=== PATIENT | male | born 1970 | race Caucasian/White ===

== ENCOUNTER 2017-07-02 09:42 | Emergency (ER) | payer BC ==
[~2017-07-02] VITALS: Ht 175.3 cm; Wt 108.2 kg
[2017-07-02 09:47] VITALS: TEMP 36.6; Ht 175.3 cm; Wt 108.2 kg
[2017-07-02] MEDS ORDERED: PANTOprazole INJ 40 MG in SYRINGE 0 ML IV ONE (10:00)
--- NOTE | 2017-07-02 10:07 | EMERGENCY ROOM VISIT NOTE ---
History Report prepared by Triciaibxochilt: Aleshia Boucher Under the Supervision of: Dr. Carlos Quintero D.O. First contact with patient: 09:53 Chief Complaint: ABDOMINAL PAIN Stated Complaint: PAIN IN RT SIDE, RADIATES TO SHOULDER History of Present Illness The patient is a 46 year old male who presents to the Emergency Room with complaints of intermittent abdominal pain for the past 1 year. He rates his pain as a 5/10 in severity. He states the pain radiates from the right side of his abdomen up his chest to his right shoulder. Eating spicy foods worsens his discomfort. He has previously had an US at [facility], and states they told him he had "fatty liver" but his gallbladder looked "OK". He has experienced no melena or hematochezia. He denies any nausea, vomiting or diarrhea. He has experienced no flank pain or difficulty breathing. Source of History: patient Onset: 1 year [employer] Position: abdomen Symptom Intensity: 5/10 Timing: intermittent Modifying Factors (Worsening): eating (spicy foods) Associated Symptoms: No SOB, No nausea, No vomiting, No melena, No hematochezia, No diarrhea Review of Systems See HPI for pertinent positives & negatives. A total of 10 systems reviewed and were otherwise negative. Past Medical & Surgical Medical Problems: (1) Gout (2) Sciatica Social History Smoking Status: Never Smoker Alcohol Use: occasionally Drug Use: none Marital Status: Housing Status: lives with family Occupation Status: employed Current/Historical Medications Scheduled Acetaminophen (Tylenol), 1,000 MG PO UD Allopurinol (Zyloprim), 400 MG PO QAM Ibuprofen (Advil), 400 MG PO UD Pantoprazole (Protonix), 40 MG PO DAILY Ranitidine Hcl (Zantac), 150 MG PO BID Allergies Coded Allergies: No Known Allergies (Unverified , 07/02/17) Physical Exam Vital Signs Date Time Temp Pulse Resp B/P (MAP) Pulse Ox O2 Delivery O2 Flow Rate FiO2 07/02/17 12:31 77 16 114/69 96 Room Air 07/02/17 11:36 80 18 123/70 95 Room Air 07/02/17 10:47 82 07/02/17 09:47 36.6 82 18 141/86 97 Room Air Physical Exam GENERAL: Patient is awake, alert in no acute distress, patient is resting comfortably and showing no signs of anxiety EYES: The conjunctivae are clear. The pupils are round and reactive. EARS, NOSE, MOUTH AND THROAT: The nose is without any evidence of any deformity. Mucous membranes are moist tongue is midline NECK: The neck is nontender and supple. RESPIRATORY: Lung sounds are diminished with rales at the right base, no tachypnea or conversational dyspnea appreciated CARDIOVASCULAR: Regular rate and rhythm noted there no murmurs rubs or gallops normal S1 normal S2 GASTROINTESTINAL: The abdomen is soft. Bowel sounds are present in all quadrants. Abdomen is nontender BACK: No midline tenderness or or step-off noted range of motion in flexion extension as well as rotation no signs of muscle spasm noted MUSCULOSKELETAL/EXTREMITIES: There is no evidence of gross deformity full range of motion is noted in the hips and shoulders SKIN: There is no obvious evidence of any rash. There are no petechiae, pallor or cyanosis noted. NEUROLOGIC: Patient is awake alert and oriented x3 Medical Decision & Procedures ER Provider Diagnostic Interpretation: Radiology results as stated below per my review and radiologist interpretation: CHEST ONE VIEW PORTABLE CLINICAL HISTORY: EVALUATE ALTERED MENTAL STATUS/WEAKNESS COMPARISON STUDY: No previous studies for comparison. FINDINGS: The bones soft tissues and hemidiaphragms are normal. The cardiomediastinal silhouette is normal. The lungs are clear. The pulmonary vasculature is normal. IMPRESSION: Negative chest. The above report was generated using voice recognition software. It may contain grammatical, syntax or spelling errors. Electronically signed by: Mathew Balderrama M.D. 07/02/2017 10:29 AM ABD/PELVIS IV CONTRAST ONLY CT DOSE: HISTORY: Pain right sided pain into the ABD TECHNIQUE: Multiaxial CT images of the abdomen and pelvis were performed following the use of intravenous contrast. A dose lowering technique was utilized adhering to the principles of ALARA. COMPARISON STUDY: None. FINDINGS: Mild bibasilar atelectasis. Fatty infiltration of liver. Gallbladder is negative for distention. In bowel pattern is nonobstructive. The appendix is normal. The cecum and proximal a sending colon suggests the possibility of a mild wall edema. There is suggestion of a trace may pericolonic infiltrative change with slight thickening of the right lateral conal fascia. Possibility of a mild nonspecific colitis is considered. Bowel pattern otherwise is nonobstructive and unremarkable. Several scattered colonic diverticuli with no evidence of diverticulitis. Bladder is midline. Inguinal regions are unremarkable. IMPRESSION: 1. Normal appendix. 2. Findings of the cecum and proximal a sending colon suggesting a mild degree of nonspecific colitis. 3. No evidence for abscess collection or obstruction. 4. Fatty infiltration of liver. The above report was generated using voice recognition software. It may contain grammatical, syntax or spelling errors. Electronically signed by: Mathew Balderrama M.D. 07/02/2017 1:[address] OF THE THORACIC SPINE WITH CONTRAST CLINICAL HISTORY: Right-sided pain radiating into abdomen. COMPARISON STUDY: No previous studies for comparison. TECHNIQUE: Axial images of the thoracic spine were obtained following intravenous injection of 90 cc Optiray 320 IV. Sagittal and coronal reconstructions were viewed. FINDINGS: The thyroid gland is moderately enlarged. The abdomen and pelvis will be reported separately. Lamina of the thoracic spine is anatomic. Vertebral body heights are maintained. There is no fracture or suspicious lesion within the thoracic spine by CT. Multiple small lymph nodes are noted. Central canal and neural foramen are suboptimally assessed by CT but appear patent. Paravertebral soft tissues are unremarkable. Fatty infiltration of the liver is noted. There is borderline cardiomegaly. IMPRESSION: 1. No acute thoracic spine fracture or subluxation. 2. Patent central canal and neural foramen by CT. 3. Enlarged thyroid gland. Electronically signed by: Kenneth Green M.D. 07/02/2017 1:03 PM Laboratory Results 07/02/17 09:55 Red Blood Count 4.62, Mean Corpuscular Volume 87.7, Mean Corpuscular Hemoglobin 31.8, Mean Corpuscular Hemoglobin Concent 36.3, Mean Platelet Volume 10.0, Neutrophils (%) (Auto) 62.6, Lymphocytes (%) (Auto) 23.0, Monocytes (%) (Auto) 9.0, Eosinophils (%) (Auto) 4.4, Basophils (%) (Auto) 0.6, Neutrophils # (Auto) 3.41, Lymphocytes # (Auto) 1.25, Monocytes # (Auto) 0.49, Eosinophils # (Auto) 0.24, Basophils # (Auto) 0.03 07/02/17 09:55 Test 07/02/17 09:55 07/02/17 10:30 White Blood Count 5.44 K/uL (4.8-10.8) Red Blood Count 4.62 M/uL (4.7-6.1) Hemoglobin 14.7 g/dL (14.0-18.0) Hematocrit 40.5 % (42-52) Mean Corpuscular Volume 87.7 fL (80-100) Mean Corpuscular Hemoglobin 31.8 pg (25-34) Mean Corpuscular Hemoglobin Concent 36.3 g/dl (32-36) Platelet Count 151 K/uL (130-400) Mean Platelet Volume 10.0 fL (7.4-10.4) Neutrophils (%) (Auto) 62.6 % Lymphocytes (%) (Auto) 23.0 % Monocytes (%) (Auto) 9.0 % Eosinophils (%) (Auto) 4.4 % Basophils (%) (Auto) 0.6 % Neutrophils # (Auto) 3.41 K/uL (1.4-6.5) Lymphocytes # (Auto) 1.25 K/uL (1.2-3.4) Monocytes # (Auto) 0.49 K/uL (0.11-0.59) Eosinophils # (Auto) 0.24 K/uL (0-0.5) Basophils # (Auto) 0.03 K/uL (0-0.2) RDW Standard Deviation 42.4 fL (36.4-46.3) RDW Coefficient of Variation 13.2 % (11.5-14.5) Immature Granulocyte % (Auto) 0.4 % Immature Granulocyte # (Auto) 0.02 K/uL (0.00-0.02) Prothrombin Time 10.2 SECONDS (9.0-12.0) Prothromb Time International Ratio 1.0 (0.9-1.1) Activated Partial Thromboplast Time 28.9 SECONDS (21.0-31.0) Partial Thromboplastin Ratio 1.1 D-Dimer 500 ug/L FEU (0-500) Anion Gap 5.0 mmol/L (3-11) Est Creatinine Clear Calc Drug Dose 109.5 ml/min Estimated GFR () 102.7 Estimated GFR (Non- 88.6 BUN/Creatinine Ratio 12.5 (10-20) Calcium Level 8.7 mg/dl (8.5-10.1) Magnesium Level 2.3 mg/dl (1.8-2.4) Total Bilirubin 1.6 mg/dl (0.2-1) Direct Bilirubin 0.3 mg/dl (0-0.2) Aspartate Amino Transf (AST/SGOT) 22 U/L (15-37) Alanine Aminotransferase (ALT/SGPT) 35 U/L (12-78) Alkaline Phosphatase 80 U/L (45-117) Troponin I < 0.015 ng/ml (0-0.045) Total Protein 7.2 gm/dl (6.4-8.2) Albumin 3.9 gm/dl (3.4-5.0) Lipase 102 U/L (73-393) Thyroid Stimulating Hormone (TSH) 5.930 uIu/ml (0.300-4.500) Free Thyroxine 0.64 ng/dl (0.80-1.60) Urine Color ORANGE Urine Appearance CLEAR (CLEAR) Urine pH 5.0 (4.5-7.5) Urine Specific [place] 1.032 (1.000-1.030) Urine Protein NEG (NEG) Urine Glucose (UA) NEG (NEG) Urine Ketones NEG (NEG) Urine Occult Blood NEG (NEG) Urine Nitrite NEG (NEG) Urine Bilirubin NEG (NEG) Urine Urobilinogen NEG (NEG) Urine Leukocyte Esterase NEG (NEG) Laboratory results per my review. Medications Administered Medications (Trade) Dose Ordered Sig/[place]aven Route Start Time Stop Time Status Last Admin Dose Admin Pantoprazole Sodium 40 mg/ Syringe 10 ml @ 5 mls/min NOW ONCE IV 07/02/17 10:00 07/02/17 10:02 DC 07/02/17 10:36 5 MLS/MIN Ranitidine HCl (zANTac TAB) 150 mg NOW ONCE PO 07/02/17 13:45 07/02/17 13:46 DC 07/02/17 13:55 150 MG ECG Per My Interpretation Indication: abdominal pain Rate (beats per minute): 80 Rhythm: normal sinus Findings: no ectopy, other (No acute ST segments) Comparison ECG Date: no prior available ED Course 0956: The patient was evaluated in room A4. A complete history and physical examination were performed. 1000: Pantoprazole Sodium 40 mg/Syringe 10 ml @ 5 mls/min IV. 1230: I reevaluated the patient. I discussed his results so far and my recommendation we do a CT scan. He verbalized complete understanding and agreement. 1337: I discussed the patients case with [facility]. He will follow up with the patient as an outpatient. 1340: I reevaluated the patient. He is feeling well and resting. I discussed his results and discharge instructions and he verbalized complete understanding and agreement. 1345: Zantac 150 mg PO. Medical Decision Prior records/ancillary studies reviewed. Triage Nursing notes reviewed. The patient's history was concerning for abdominal pain. Differential diagnosis: Etiologies such as appendicitis, diverticulitis, PUD, biliary pathology, UTI, pancreatitis, obstruction, mesenteric ischemia, aortic pathology, infections, inflammatory bowel disease, renal colic, as well as others were entertained. The patient is a 46-year-old male who presented to the emergency department with right-sided abdominal and right-sided chest pain with radiation to the shoulder. The patient states that he has had ongoing symptoms for quite some time but they became much worse recently. He was seen recently at [facility] and had an ultrasound which did not reveal any acute abnormality. The patient's pain is somewhat worsened with eating as well. I discussed the patient's laboratory and radiographic studies with him including the abnormalities noted and is a sending colon as well as the abnormalities noted in his thyroid function studies. I discussed his case with the [facility] of his choice. They have agreed to evaluate the patient as an outpatient for further management and disposition. The patient was encouraged to avoid any fatty spicy or fried foods. He was also encouraged to continue all medications as prescribed and return to the emergency department immediately if symptoms change worsen or the need arises. He was started on Protonix and Zantac. Medication Reconcilliation Current Medication List: was personally reviewed by me Blood Pressure Screening Patient's blood pressure: Normal blood pressure Blood pressure disposition: Did not require urgent referral Consults Time Called: 1335 Consulting Physician: [facility] Returned Call: 1334 I discussed the patients case with [facility]. He will follow up with the patient as an outpatient. Impression Primary Impression: Right-sided chest pain Additional Impressions: Right sided abdominal pain Colitis Scribe Attestation The scribe's documentation has been prepared under my direction and personally reviewed by me in its entirety. I confirm that the note above accurately reflects all work, treatment, procedures, and medical decision making performed by me. Departure Information Dispostion Home / Self-Care Prescriptions Pantoprazole (PROTONIX) 40 Mg Tab 40 MG PO DAILY, #30 TAB Prov: Carlos Quintero, DO 07/02/17 Ranitidine Hcl (ZANTAC) 150 Mg Tab 150 MG PO BID, #60 TAB Prov: Carlos Quintero, DO 07/02/17 Referrals No Doctor, Assigned (PCP) Patient Instructions Abdominal Pain, My [facility] [address] Additional Instructions Call the [facility] specialists to schedule a follow-up appointment. Drink plenty of clear liquids. Continue using Tylenol as directed for mild pain. Continue all other medications as prescribed. Avoid any spicy fatty or fried foods. Follow-up with your family doctor for reevaluation of your thyroid function studies. You may need to be started on a thyroid medication or possibly a referral to an net coordinator. Return to the emergency department immediately if symptoms change worsen or the need arises. Problem Qualifiers
[2017-07-02 10:08] LABS: BASO % 0.6 %; BASO ABS # 0.03 K/uL (0-0.2); EOS % 4.4 %; EOS ABS # 0.24 K/uL (0-0.5); HEMATOCRIT 40.5 % (42-52); HEMOGLOBIN 14.7 g/dL (14.0-18.0); IG# 0.02 K/uL (0.00-0.02); LYMPH ABS # 1.25 K/uL (1.2-3.4); MEAN CELL VOLUME 87.7 fL (80-100); MEAN CORPUSCULAR HEMOGLOBIN 31.8 pg (25-34); MEAN CORPUSCULAR HGB CONC 36.3 g/dl (32-36); MONO ABS # 0.49 K/uL (0.11-0.59); NEUT % 62.6 %; NEUT ABS # 3.41 K/uL (1.4-6.5); PLATELET COUNT 151 K/uL (130-400); RED CELL DISTRIBUTION WIDTH CV 13.2 % (11.5-14.5); RED CELL DISTRIBUTION WIDTH SD 42.4 fL (36.4-46.3); WHITE BLOOD COUNT 5.44 K/uL (4.8-10.8)
[2017-07-02 10:21] LABS: PTT PATIENT 28.9 SECONDS (21.0-31.0)
[2017-07-02 10:29] LABS: ALBUMIN 3.9 gm/dl (3.4-5.0); ALT/SGPT 35 U/L (12-78); AST/SGOT 22 U/L (15-37); BLOOD UREA NITROGEN 12 mg/dl (7-18); CALCIUM 8.7 mg/dl (8.5-10.1); CARBON DIOXIDE 26 mmol/L (21-32); GLUCOSE 118 mg/dl (70-99); LIPASE 102 U/L (73-393); POTASSIUM 3.6 mmol/L (3.5-5.1); SODIUM 137 mmol/L (136-145)
--- NOTE | 2017-07-02 10:31 | DIAGNOSTIC IMAGING REPORT ---
CHEST ONE VIEW PORTABLE CLINICAL HISTORY: EVALUATE ALTERED MENTAL STATUS/WEAKNESS COMPARISON STUDY: No previous studies for comparison. FINDINGS: The bones soft tissues and hemidiaphragms are normal. The cardiomediastinal silhouette is normal. The lungs are clear. The pulmonary vasculature is normal. IMPRESSION: Negative chest. The above report was generated using voice recognition software. It may contain grammatical, syntax or spelling errors. Electronically signed by: Mathew Balderrama M.D. 07/02/2017 10:29 AM Dictated Date/Time: 07/02/2017 10:28 AM
[2017-07-02 10:41] LABS: ALKALINE PHOSPHATASE 80 U/L (45-117); TOTAL PROTEIN 7.2 gm/dl (6.4-8.2)
[2017-07-02] MEDS ORDERED: ACET-1256 PO (11:20)
[2017-07-02] MEDS ORDERED: IBUP-1050 PO (11:20)
[2017-07-02] MEDS ORDERED: ALLO100T PO (11:20)
[2017-07-02] MEDS ORDERED: OPTIRAY 320 IV PRN (12:45)
--- NOTE | 2017-07-02 13:02 | DIAGNOSTIC IMAGING REPORT ---
ABD/PELVIS IV CONTRAST ONLY CT DOSE: HISTORY: Pain right sided pain into the ABD TECHNIQUE: Multiaxial CT images of the abdomen and pelvis were performed following the use of intravenous contrast. A dose lowering technique was utilized adhering to the principles of ALARA. COMPARISON STUDY: None. FINDINGS: Mild bibasilar atelectasis. Fatty infiltration of liver. Gallbladder is negative for distention. In bowel pattern is nonobstructive. The appendix is normal. The cecum and proximal a sending colon suggests the possibility of a mild wall edema. There is suggestion of a trace may pericolonic infiltrative change with slight thickening of the right lateral conal fascia. Possibility of a mild nonspecific colitis is considered. Bowel pattern otherwise is nonobstructive and unremarkable. Several scattered colonic diverticuli with no evidence of diverticulitis. Bladder is midline. Inguinal regions are unremarkable. IMPRESSION: 1. Normal appendix. 2. Findings of the cecum and proximal a sending colon suggesting a mild degree of nonspecific colitis. 3. No evidence for abscess collection or obstruction. 4. Fatty infiltration of liver. The above report was generated using voice recognition software. It may contain grammatical, syntax or spelling errors. Electronically signed by: Mathew Balderrama M.D. 07/02/2017 1:01 PM Dictated Date/Time: 07/02/2017 12:58 PM
--- NOTE | 2017-07-02 13:04 | DIAGNOSTIC IMAGING REPORT ---
CT OF THE THORACIC SPINE WITH CONTRAST CLINICAL HISTORY: Right-sided pain radiating into abdomen. COMPARISON STUDY: No previous studies for comparison. TECHNIQUE: Axial images of the thoracic spine were obtained following intravenous injection of 90 cc Optiray 320 IV. Sagittal and coronal reconstructions were viewed. FINDINGS: The thyroid gland is moderately enlarged. The abdomen and pelvis will be reported separately. Lamina of the thoracic spine is anatomic. Vertebral body heights are maintained. There is no fracture or suspicious lesion within the thoracic spine by CT. Multiple small lymph nodes are noted. Central canal and neural foramen are suboptimally assessed by CT but appear patent. Paravertebral soft tissues are unremarkable. Fatty infiltration of the liver is noted. There is borderline cardiomegaly. IMPRESSION: 1. No acute thoracic spine fracture or subluxation. 2. Patent central canal and neural foramen by CT. 3. Enlarged thyroid gland. Electronically signed by: Kenneth Green M.D. 07/02/2017 1:03 PM Dictated Date/Time: 07/02/2017 12:53 PM
[2017-07-02] MEDS ORDERED: PANT1TAB3 PO (13:37)
[2017-07-02] MEDS ORDERED: RANI150T3 PO (13:37)
[2017-07-02 13:45] VITALS: BP 125/80; PULSE 70; O2SAT 96
[2017-07-02] MEDS ORDERED: RANITIDINE HCL 150 MG TAB PO ONE (13:45)
== END 2017-07-02 13:57 | disposition home or self-care (01) ==
LOC: C.EDB 09:45 → C.EDA 13:57
DX: R07.9 Chest pain, unspecified (principal); R10.11 Right upper quadrant pain; K52.9 Noninfective gastroenteritis and colitis, unspecified